=== PATIENT | female | born 1970 | race Caucasian/White ===

== ENCOUNTER 2016-10-01 03:48 | Emergency (ER) | payer SELFPAY ==
--- NOTE | ~2016-10-01 | CR72 ---
[facility] A Service of [facility] & [facility] RADIOLOGY TEXT RESULTS PATIENT: DARIEL NICOLE LOCATION: [facility] : 72 UNIT #: [id number] AGE: [address]: Francisco Pollard MD SEX: F ORDER DR: [id number] [facility] [address] [place], [place] [address] [id number] E MR#: [id number] Acc #: [id number] NAME: DARIEL NICOLE : 1970 SEX: F STUDY DATE/TIME: 10/01/2016 0:07 UNIT: [facility] ROOM: STUDY DESCRIPTION: CR Chest Single View Portable Attending Physician: Francisco Pollard M.D. Ordering Physician: Ed Doctor [id number] [facility] Primary Care Physician: No Primary Care Physician MEDICAL IMAGING REPORT This report is preliminary unless electronic signature is present EXAM AP portable chest, 10/01/2016 HISTORY A 46-year-old female in the ED complaining of new onset chest pain beginning earlier today. TECHNIQUE AP portable chest x-ray. FINDINGS The examination is negative. Heart size and pulmonary vascularity are normal. The lungs are clear. No visible pulmonary infiltrate or pleural effusion. IMPRESSION Negative chest. Dictated by... Ayo Banks M.D. THIS IS AN ELECTRONICALLY VERIFIED REPORT Ayo Banks M.D. at 10/01/2016 10:06 PM XIMENA/aisha TD: 10/01/2016 15:52 JOB #: [id number] MEDICAL IMAGING REPORT Page 1 of 1 COPY
--- NOTE | ~2016-10-01 | CT16 ---
[facility] A Service of [facility] RADIOLOGY TEXT RESULTS PATIENT: DARIEL NICOLE LOCATION: [facility] : 72 UNIT #: [id number] AGE: [address]: Francisco Pollard MD SEX: F ORDER DR: [id number] [facility] [address] [place], [place] [address] [id number] E MR#: [id number] Acc #: [id number] NAME: DARIEL NICOLE : 1970 SEX: F STUDY DATE/TIME: 10/01/2016 4:40 UNIT: [facility] ROOM: STUDY DESCRIPTION: CT Angio Chest for PE Attending Physician: Francisco Pollard M.D. Ordering Physician: Onesimo Alejandre Aprn Primary Care Physician: No Primary Care Physician MEDICAL IMAGING REPORT This report is preliminary unless electronic signature is present EXAM CT chest with contrast, pulmonary arteriography protocol, 10/01/2016 HISTORY 46-year-old female in the ED complaining of 3-day history of worsening chest pain and shortness of air. TECHNIQUE CT examination of the chest was performed with IV contrast using pulmonary arteriography protocol. 3-D CTA images of the pulmonary arteries were reformatted in multiple planes. This CT exam was performed with one or more of the following radiation dose reduction techniques: automatic exposure control, adjustment of mA and/or kV according to patient size, and iterative reconstruction. FINDINGS No pulmonary embolism is demonstrated. Normal-caliber thoracic aorta. Heart size is normal. No pericardial effusion. The lungs are expanded and clear. No visible pulmonary infiltrate, pneumothorax or pleural effusion. Limited upper abdominal images show a stent within the extrahepatic bile duct. Cholecystectomy. Mild intrahepatic and extrahepatic bile duct dilatation. IMPRESSION 1. Negative chest CT examination using pulmonary arteriography protocol. 2. Cholecystectomy with stent in mildly dilated extrahepatic bile duct. Dictated by... Ayo Banks M.D. [facility] A Service of [facility] RADIOLOGY TEXT RESULTS PATIENT: DARIEL NICOLE LOCATION: [facility] : 72 UNIT #: [id number] AGE: [address]: Francisco Pollard MD SEX: F ORDER DR: THIS IS AN ELECTRONICALLY VERIFIED REPORT Ayo Banks M.D. at 10/01/2016 10:06 PM Rochelle TD: 10/01/2016 13:33 JOB #: [id number] MEDICAL IMAGING REPORT Page 1 of 1 COPY
--- NOTE | ~2016-10-01 | EKG ---
PATIENT: DARIEL NICOLE UNIT #: [id number] Ventricular Rate: 88 BPM Atrial Rate: 88 BPM P-R Interval: 130 ms QRS Duration: 70 ms Q-T Interval: 350 ms QTC Calculation(Bezet): 423 ms P [place]: 63 degrees Calculated R [place]: 37 degrees Calculated T [place]: 39 degrees Diagnosis Line: Normal sinus rhythm Diagnosis Line: Normal ECG Diagnosis Line: No previous ECGs available Diagnosis Line: Confirmed by VANI PALMER MD ([id number]) on 10/02/2016 Diagnosis Line: 9:17:46 AM INTERPRETING MD: SPENCER HENRIQUEZ
[2016-10-01 03:31] LABS: POC - CKMB <1.0 ng/mL (0.0-7.9); POC - TROPONIN <0.05 ng/mL (<=0.05)
[~2016-10-01 03:48] MED LIST: AUGMENTIN875 M1 PO; PERCOCET5/325 PO
[2016-10-01 04:05] LABS: BASOPHIL% 0.2 % (0-2.5); HEMATOCRIT 37.6 % (35.0-45.0); HEMOGLOBIN 12.1 gm/dL (12.0-16.0); LYMPHOCYTE# 0.3 X10e3 (1.0-3.5); LYMPHOCYTE% 1.6 % (17.0-45.0); MEAN CELL VOLUME 83.3 FL (83-96); MEAN CORPUSCULAR HEMOGLOBIN 26.8 PG (28-34); MEAN CORPUSCULAR HGB CONC 32.2 g/dL (30-36); MEAN PLATELET VOLUME 8.5 FL (6.5-11.5); MONOCYTE# 0.7 X10e3 (0-1.0); MONOCYTE% 3.3 % (3.0-12.0); NEUTROPHIL# 20.6 X10e3 (1.5-7.1); NEUTROPHIL% 94.9 % (40-75); PLATELET COUNT 347 X10e3 (140-420); RED BLOOD COUNT 4.52 X10e (3.90-5.30); RED CELL DISTRIBUTION WIDTH 15.1 % (11.0-15.5); WHITE BLOOD COUNT 21.7 X10e3 (4.0-10.5)
[2016-10-01 04:07] LABS: DIFF IND YES
[2016-10-01 04:18] LABS: ALBUMIN SERUM 3.6 g/dL (3.5-5.0); ALKALINE PHOSPHATASE 227 U/L (32-92); ALT (SGPT) 345 U/L (10-40); AST (SGOT) 309 U/L (10-42); BILIRUBIN, DIRECT 0.6 mg/dL (0.0-0.2); BILIRUBIN,INDIRECT 0.4 mg/dL (0.0-0.9); BLOOD UREA NITROGEN 8 mg/dL (9-23); CALCIUM SERUM 8.9 mg/dL (8.4-10.2); CARBON DIOXIDE 25 mmol/L (22-31); CHLORIDE 104 mmol/L (100-111); CREATININE SERUM 0.5 mg/dL (0.6-1.4); GLOM FILT RATE Estimated ABOVE60 mL/min (>60); GLUCOSE FASTING 138 mg/dL (70-110); POTASSIUM 3.3 mmol/L (3.5-5.1); PROTEIN TOTAL SERUM 7.6 g/dL (6.0-8.3); SODIUM 137 mmol/L (135-145)
[2016-10-01 04:43] LABS: ANISOCYTOSIS SL; PLATELET ESTIMATE NORMAL (NORMAL)
[2016-10-01 08:52] LABS: POC - CKMB <1.0 ng/mL (0.0-7.9); POC - TROPONIN <0.05 ng/mL (<=0.05)
== END 2016-10-01 09:53 | disposition home or self-care (01) ==
LOC: CED 03:48
PROVIDERS: Emergency Medicine
DX: R07.9 Chest pain, unspecified (principal); R10.13 Epigastric pain; M54.9 Dorsalgia, unspecified; R94.5 Abnormal results of liver function studies; Z90.49 Acquired absence of other specified parts of digestive tract
CPT/HCPCS: 36415; 71010; 71275; 80048; 80076; 82553; 83690; 84484; 85025; 93005; 96360; 99284; Q9967

== ENCOUNTER 2016-10-04 23:31 | Emergency (ER) | payer SELFPAY | END 2016-10-05 00:44 | disposition home or self-care (01) | LOC: CFTX 23:31 | DX: S29.012A Strain of muscle and tendon of back wall of thorax, initial encounter (principal); X50.9XXA Other and unspecified overexertion or strenuous movements or postures, initial encounter; Y92.9 Unspecified place or not applicable | CPT/HCPCS: 96372; 99283; J1885 ==